=== PATIENT | male | born 1960 | race Two or more races ===

== ENCOUNTER 2025-07-26 13:30 | Outpatient (RCR) | payer MEDICARE, MEDICAID, SELFPAY ==
--- NOTE | 2025-07-17 10:45 | PTNOTE_ITS ---
PT OP Initial Eval Patient Information Outpatient Physical Therapy Treatment Date: 07/17/25 Visit Reasons: back pain/cva Medical Diagnosis: M54.9 I69.398 Treatment Dx #1: LBP with radiculopathy Treatment Dx #2: Balance impairment Start of Care: 07/17/25 Date of Onset: 2 months ago Smoking Status Smoking Status: Former smoker Tobacco Use: Cigarette Years smoked: 15 Initial Assessment Subjective: Pt is 65 yr old male s/p CVA, LBP and B LE weakness R>L. He reports he has fallen 6 times over the past 2 months and is ambulating with a cane. The R UE/LE are weak and he lost strength in hand after the CVA and he can't feel B LE's. He thinks he can ambulate for about 150 yards and then he rests. Stairs and rolling over to get OOB is difficult. PLOF: prior to CVA pt was independent with mobility without assistive device x community distances PMH: HTN, DM, hypothyroidism, allergies, CAD with stend, CVA Pt goal: improve walking distance Objective: 30 second chair to stand: 7 ? SL balance: R <1 sec, L <1 sec with LOB on each ? Tandem stance: sway, LOB on even surface ? Uneven surface: NT ? Strength of LE's: ? R hamstrings and quads: 3+/5, L 4-/5 ? Trunk ArOM: ? B SB 50% of normal with pain ? Extension: 20% with pain around L2-3 ? Flexion: 10 from floor with LBP ? B rotation: 50% with pain ? Neuro: R SLR: positive Assessment: Pt presents with trunk flexion and extension sensitivity consistent with degenerative changes and R LE radiculopathy. Pt has R LE weakness and poor SL and tandem stance balance consistent with CVA and R hemiplegia. Pt scored low on the 30 sec chair to stand test (<12) which indicates higher fall risk and LE strength. Pt would benefit from skilled therapy and has fair rehab potential. Short Term and Long-Term Goals 1. Independent with HEP ? 2. Improved ambulatory distance to 300 yards ? 3. No sway with tandem stance on firm surfaces for 15 seconds ? 4. Improved sitting/standing tolerance to 30 minutes with <=4/10 LBP 5. Lower fall risk as shown by improved 30 second chair to stand test to 12 ? Treatment Plan 1. Manual therapy ? 2. Therex ? 3. Modalities as indicated, moist heat, ice, estim, mechanical traction Frequency and Duration: 1-2x a week for 12 visits plus the evaluation Certification Dates: 07/17/25 to 10/14/25 Procedure Charges OP PT Eval Mod Complex 30 minutes: Yes
--- NOTE | 2025-07-26 14:39 | PT.ODAYNRPT ---
PT Outpatient Daily Note OP Daily Note Outpatient Physical Therapy Treatment Date: 07/26/25 Visit Reasons: back pain/cva Subjective: Pt reports back pain is moderate today and mentioned the numbing sensation and feeling of heaviness in his legs are worse today. Pt shared that he feels his legs symptoms are getting worse as time goes by. Objective: Please see flow sheet for ther ex list. Assessment: Pt ambulates with wide and uneven step length today, regressed interventions to accommodate pain. Plan: Continue with poC. Length of Time (minutes) of Treatment: 30 Minutes COMMERCIAL REAL ESTATE ASSISTANT Service Modifier Method I: Divide the number of min of care provided by the COMMERCIAL REAL ESTATE ASSISTANT/COLEMAN by the total min of care provided then multiply by 100. If greater than 11 percent modifier is required. Method II: Divide the total time of care provided to patient by 10 (round to the nearest whole number) and add 1 min. to set the minimum time requirement. If treatment total was 60 min., then 10% of 6 min PT CQ modifier applied: CQ Modifier applied Procedure Charges Therapeutic Exercise 30 minutes: Yes
== END 2025-08-04 23:59 | disposition home or self-care (01) ==
LOC: CPTX 13:30
PROVIDERS: PCP Physician Assistant; Referring Provider Physician Assistant; Visit Provider Physician Assistant
DX: M54.16 Radiculopathy, lumbar region (principal); I69.954 Hemiplegia and hemiparesis following unspecified cerebrovascular disease affecting left non-dominant side; I10 Essential (primary) hypertension; I69.351 Hemiplegia and hemiparesis following cerebral infarction affecting right dominant side; I69.398 Other sequelae of cerebral infarction; R26.89 Other abnormalities of gait and mobility
CPT/HCPCS: 97110; 97162

== ENCOUNTER 2025-08-05 13:12 | Outpatient (RCR) | payer MEDICARE, MEDICAID, SELFPAY ==
--- NOTE | 2025-08-05 15:00 | PT.ODAYNRPT ---
PT Outpatient Daily Note OP Daily Note Outpatient Physical Therapy Treatment Date: 08/05/25 Visit Reasons: BACK PAIN/CVA Subjective: About the same as last visit Objective: See F/S for therex Assessment: Good balance in tandem stance with minimal sway Plan: Continue per POC Length of Time (minutes) of Treatment: 30 Minutes Procedure Charges Therapeutic Exercise 30 minutes: Yes
== END 2025-09-04 23:59 | disposition home or self-care (01) ==
LOC: CPTX 13:12
PROVIDERS: PCP Physician Assistant; Referring Provider Physician Assistant; Visit Provider Physician Assistant
DX: M54.16 Radiculopathy, lumbar region (principal); I69.398 Other sequelae of cerebral infarction; R26.89 Other abnormalities of gait and mobility; I69.354 Hemiplegia and hemiparesis following cerebral infarction affecting left non-dominant side; I69.351 Hemiplegia and hemiparesis following cerebral infarction affecting right dominant side; I10 Essential (primary) hypertension; E11.9 Type 2 diabetes mellitus without complications
CPT/HCPCS: 97110